=== PATIENT | male | born 1995 | race Caucasian/White ===

== ENCOUNTER 2017-02-15 18:32 | Emergency (ER) | payer SELFPAY ==
[~2017-02-15] VITALS: Ht 170.2 cm; Wt 66.0 kg
[2017-02-15 18:34] VITALS: BP 116/73; PULSE 76; RESP 20; TEMP 98.4; O2SAT 98
--- NOTE | 2017-02-15 18:36 | PD ---
Physical Exam Date Seen by Provider: Feb 15, 2017 Time Seen by Provider: 18:34 Data Data Last Documented VS Vital Signs Date Time Temp Pulse Resp B/P Pulse Ox O2 Delivery O2 Flow Rate FiO2 02/15/17 18:34 98.4 76 20 116/73 98 Room Air [facility] Supervised Visit with W[place]: No Narrative Course 21 YO M with complaint of axillary itching, elbow and groin itching x "just a few days." Vitals reviewed. Patient seen in triage, awaiting bed placement. [place] Nelson Feb 15, 2017 18:36
== END 2017-02-15 21:22 | disposition left against medical advice (07) ==
LOC: NED 18:32
DX: L29.9 Pruritus, unspecified (principal)
CPT/HCPCS: 99281